=== PATIENT | male | born 1950 | race Caucasian/White ===

== ENCOUNTER → 2016-06-29 | Outpatient (CLI) | payer OTHER ==
[~2016-06-29] MED LIST: ALTACE 2.5MG T2.5 MG PO; ASPIRIN 81M81 MG/TA2 PO; CRANBERRY450 MG PO; CRESTOR20 MG PO; FLOMAX 0.40.4 MG/CAP PO; KLONOPIN 0.5MG0.5 MG PO; MULTIPLE VITAMI1 CAP PO; NORCO 325 MG-51 TAB PO; NUVIGIL250 MG PO; VIIBRYD20 MG PO; XANAX .25M0.25 MG/TA PO; XANAX 0.5MG0.5 MG PO; ZOFRAN 4MG T4 MG/TAB PO
== END ==
LOC: BHSO 11:03
DX: F41.1 Generalized anxiety disorder (principal)

== ENCOUNTER → 2016-09-28 | Outpatient (CLI) | payer OTHER | LOC: BHSO 09:00 | DX: F41.1 Generalized anxiety disorder (principal) ==

== ENCOUNTER → 2016-12-29 | Outpatient (CLI) | payer OTHER | LOC: BHSO 08:59 | DX: F41.1 Generalized anxiety disorder (principal) ==

== ENCOUNTER → 2017-03-23 | Outpatient (CLI) | payer OTHER | LOC: BHSO 10:27 | DX: F41.1 Generalized anxiety disorder (principal) ==

== ENCOUNTER → 2017-05-05 | Outpatient (CLI) | payer OTHER | LOC: COL.RAD 09:20 | DX: M25.552 Pain in left hip (principal) | CPT/HCPCS: J3301; Q9967 ==

== ENCOUNTER → 2017-06-29 | Outpatient (CLI) | payer OTHER | LOC: BHSO 10:58 | DX: F41.1 Generalized anxiety disorder (principal) | CPT/HCPCS: G0463 ==

== ENCOUNTER → 2019-08-07 | Outpatient (CLI) | payer MEDICARE, BC | LOC: COL.VAS 12:50 | DX: Z13.6 Encounter for screening for cardiovascular disorders (principal); M79.89 Other specified soft tissue disorders ==

== ENCOUNTER → 2019-12-14 | Outpatient (CLI) | payer MEDICARE, BC | LOC: COL.RAD 10:25 | DX: M16.11 Unilateral primary osteoarthritis, right hip (principal) | CPT/HCPCS: J3301; Q9967 ==

== ENCOUNTER → 2020-05-03 | Outpatient (CLI) | payer MEDICARE, BC | LOC: COL.RAD 08:58 | DX: M25.551 Pain in right hip (principal) | CPT/HCPCS: J3301; Q9967 ==

== ENCOUNTER → 2020-09-06 | Outpatient (CLI) | payer MEDICARE, BC | LOC: COL.RAD 09:06 | DX: M25.551 Pain in right hip (principal) | CPT/HCPCS: J3301; Q9967 ==

== ENCOUNTER 2021-03-20 12:45 | Outpatient (RCR) | payer MEDICARE, BC | END 2021-03-23 | disposition home or self-care (01) | LOC: WSC | DX: M25.551 Pain in right hip (principal) ==

== ENCOUNTER 2021-06-11 13:30 | Outpatient (RCR) | payer MEDICARE, BC | END 2021-06-13 | disposition home or self-care (01) | LOC: WSPT | DX: Z96.641 Presence of right artificial hip joint (principal) ==

== ENCOUNTER 2021-07-03 15:00 | Outpatient (RCR) | payer MEDICARE, BC | END 2021-07-14 | disposition still patient (30) | LOC: WSPT | DX: Z96.641 Presence of right artificial hip joint (principal) ==

== ENCOUNTER 2021-08-05 14:15 | Outpatient (RCR) | payer MEDICARE, BC | END 2021-08-11 | disposition home or self-care (01) | LOC: WSC | DX: Z96.641 Presence of right artificial hip joint (principal) ==

== ENCOUNTER → 2021-09-11 | Outpatient (RCR) | payer MEDICARE, BC | END | disposition home or self-care (01) | LOC: WSC → WSPT 08-14 15:45 → WSC 08-19 12:45 | DX: M25.551 Pain in right hip (principal); Z96.641 Presence of right artificial hip joint ==

== ENCOUNTER → 2022-02-13 | Outpatient (CLI) | payer MEDICARE, BC | LOC: COL.VAS 10:01 | DX: R53.1 Weakness (principal) ==

== ENCOUNTER 2024-04-11 10:48 | Outpatient (RCR) | payer MEDICARE, BC | END 2024-04-13 | disposition home or self-care (01) | LOC: WSPT | DX: M17.11 Unilateral primary osteoarthritis, right knee (principal) ==